=== PATIENT | female | born 1990 | race American Indian/Alaskan Native ===

== ENCOUNTER 2016-11-08 10:36 | Observation (INO) | payer MEDICAID ==
[2016-11-08 10:55] VITALS: RESP 20; TEMP 98.5; O2SAT 99
--- NOTE | 2016-11-08 11:23 | C.PDOC ---
History Of Present Illness 25 y/o female with PSHx of , EGA 17 weeks presents to ED with complaints of intermittent abdominal pain for 3 days. Patient reports pain was initially to LLQ then RUQ and RLQ. Patient states pain moves to right flank when she lies on her right side but moves forward when supine. Patient denies or placental abnormality and denies fever, nausea, vomiting, UTI symptoms , vaginal bleeding or associated symptoms with eating. No other complaints at this time ABD PAIN X 3 DAYS. INTERMIT. INITIALLY LLQ, THEN RUQ/RLQ. PS PAIN MOVES TO R FLANK WHEN LIES ON R SIDE BUT MOVES FORWARD WHEN SUPINE. NO FEVER, NV, UTI SX. NO ASSOC W EATING. PSH CSECT. EGA 17 WKS. DENIES VAG BLEED. PT DENIES OR PLACENTAL ABNORMALITY EXAM APPEARS COMFORT NONTOXIC HEENT NEG ABD +GRAVID MIN RLQ TEND SOFT NO R/G REMAINDER NEG Time Seen by Provider: 11/08/16 11:00 Chief Complaint (Nursing): Abdominal Pain History Per: Patient History/Exam Limitations: no limitations Onset/Duration Of Symptoms: Days Current Symptoms Are (Timing): Still Present Location Of Pain/Discomfort: RUQ, RLQ, LLQ Quality Of Discomfort: "Pain" Exacerbating Factors: Movement Past Medical History Reviewed: Historical Data, Nursing Documentation, Vital Signs Vital Signs: Last Vital Signs Temp 98.5 F 11/08/16 10:51 Pulse 100 H 11/08/16 10:51 Resp 20 11/08/16 10:51 BP 111/71 11/08/16 10:51 Pulse Ox 99 11/08/16 12:51 - Medical History PMH: No Chronic Diseases Surgical History: No Surg Hx Family History: States: No Known Family Hx - Social History Hx Tobacco Use: No Hx Alcohol Use: No Hx Substance Use: No - Immunization History Hx Tetanus Toxoid Vaccination: No Hx Influenza Vaccination: Yes Hx Pneumococcal Vaccination: No Review Of Systems Except As Marked, All Systems Reviewed And Found Negative. Constitutional: Negative for: Fever, Chills Gastrointestinal: Positive for: Abdominal Pain. Negative for: Nausea, Vomiting Genitourinary: Negative for: Dysuria, Hematuria, Vaginal Bleeding Musculoskeletal: Negative for: Back Pain Skin: Negative for: Rash Physical Exam - Physical Exam Appears: Non-toxic, Other (Comfortable) Skin: Normal Color, Warm, Dry, No Rash Head: Atraumatic, Normacephalic Eye(s): bilateral: Normal Inspection, EOMI Ear(s): Bilateral: Normal Nose: Normal Oral Mucosa: Moist Throat: Normal, No Erythema Neck: Normal ROM, Supple Chest: Symmetrical Gastrointestinal/Abdominal: Soft, Tenderness (Minimal RLQ), No Guarding, No Rebound, Other (+) Back: No CVA Tenderness Extremity: Normal ROM, Capillary Refill (<2 seconds) Neurological/Psych: Oriented x3 ED Course And Treatment - Laboratory Results Result Diagrams: 11/08/16 11:59 11/08/16 11:59 O2 Sat by Pulse Oximetry: 99 (RA) Pulse Ox Interpretation: Normal Progress - Data Reviewed Data Reviewed: Lab, Diagnostic imaging, Old records ED OBSERVATION Discharge: Yes Date of observation admission: 11/08/16 Time of observation admission: 11:15 - Observation admission statement Patient is being placed in observation because:: ABD PAIN; PREG - Goals of Observation Goals of observation are:: NEG ACUTE ABD - Progress Note Progress Note: 11/08/16 14:01 FEELS BETTER. NO S/S ACUTE ABD. VSS. Disposition Counseled Patient/Family Regarding: Studies Performed, Diagnosis, Need For Followup, Rx Given - Disposition Disposition: HOME/ ROUTINE Disposition Time: 14:01 Condition: IMPROVED - POA Present On Arrival: None - Clinical Impression Clinical Impression: UTI (urinary tract infection) during , Abdominal pain, Threatened - Scribe Statement The provider has reviewed the documentation as recorded by the Terrence Bryant All medical record entries made by the Terrence were at my direction and personally dictated by me. I have reviewed the chart and agree that the record accurately reflects my personal performance of the history, physical exam, medical decision making, and the department course for this patient. I have also personally directed, reviewed, and agree with the discharge instructions and disposition.
[2016-11-08 12:02] LABS: BASO # 0.1 K/uL (0.0-0.2); BASO % 0.7 % (0.0-2.0); EOS % 0.5 % (0.0-4.0); HEMATOCRIT 31.5 % (34.0-47.0); LYMPH # 2.1 K/uL (1.0-4.3); LYMPH % 22.9 % (20.0-40.0); MEAN CELL VOLUME 78.4 fL (81.0-99.0); MEAN CORPUSCULAR HEMOGLOBIN 26.9 pg (27.0-31.0); MEAN CORPUSCULAR HGB CONC 34.3 g/dL (33.0-37.0); MEAN PLATELET VOLUME 6.9 fL (7.2-11.7); MONO # 0.4 K/uL (0.0-0.8); MONO % 4.7 % (0.0-10.0); NRBC % 0.1 % (0.0-2.0); RED CELL DISTRIBUTION WIDTH 13.7 % (11.5-14.5); WHITE BLOOD COUNT 9.4 K/uL (4.8-10.8)
[2016-11-08 12:06] LABS: RBC URINE 10 /hpf (0-3); URINE BACTERIA RARE (<OCC); URINE BILIRUBIN NEGATIVE (NEGATIVE); URINE BLOOD 1+ (NEGATIVE); URINE COLOR Yellow (YELLOW); URINE GLUCOSE (UA) NORMAL (Normal); URINE KETONE NEGATIVE (NEGATIVE); URINE LEUKOCYTE ESTERASE 3+ Leu/uL (Negative); URINE PROTEIN NEGATIVE (NEGATIVE); URINE UROBILINOGEN NORMAL mg/dL (0.2-1.0); WBC URINE 141 /hpf (0-5)
[2016-11-08 12:23] LABS: CHLORIDE 102 mmol/L (98-107)
[2016-11-08 12:24] LABS: POTASSIUM 3.8 mmol/L (3.6-5.2); SODIUM 136 mmol/L (132-148)
[2016-11-08 12:26] LABS: ALB/GLOB RATIO 1.1 (1.0-2.1); AST/SGOT 13 U/L (14-36); BILIRUBIN,TOTAL 0.4 mg/dL (0.2-1.3); BLOOD UREA NITROGEN 7 mg/dL (7-17); CARBON DIOXIDE 21 mmol/L (22-30); GFR AFRICAN-AMERICAN > 60; TOTAL PROTEIN 6.4 g/dL (6.3-8.3)
[2016-11-08 12:27] LABS: ALKALINE PHOSPHATASE 59 U/L (38-126); ALT/SGPT 23 U/L (9-52); GLUCOSE,RANDOM 74 mg/dL (65-105)
--- NOTE | 2016-11-08 12:50 | US ---
HISTORY: RUQ/RLQ abd pain COMPARISON: None available. TECHNIQUE: Sonographic evaluation of the right upper quadrant of the abdomen. FINDINGS: LIVER: Measures 16.0 cm in length and appears unremarkable. No focal hepatic mass identified. The main portal vein appears patent with normal directional flow. No intrahepatic bile duct dilatation. GALLBLADDER: No gallstones. No gallbladder wall thickening or pericholecystic edema. Negative sonographic Soto's sign as assessed by the switchman. COMMON BILE DUCT: Measures 3 mm. PANCREAS: Not well-visualized. RIGHT KIDNEY: Measures 12.0 x 4.3 x 5.5 cm. No obstructing calculus or hydronephrosis identified. AORTA: Limited visualization appears grossly unremarkable. IVC: Limited visualization appears grossly unremarkable. OTHER FINDINGS: None . IMPRESSION: Unremarkable right upper quadrant ultrasound as above.
--- NOTE | 2016-11-08 13:28 | US ---
Indication: Right-sided abdominal pain, rule out demise Comparison: None available Technique: Real-time ultrasound was performed through the pelvis. Findings: There is a single living fetus in cephalic presentation. Anterior placenta. The placenta is not previa. There are no adnexal masses or cysts evident. Cervix length measures approximately 3.5 cm. The maternal appendix was not visualized on limited submitted sonographic views of the right lower quadrant. Measurements and calculations: Fetus has a composite sonographic age of 18 weeks 1 day. This calculation is based on the biparietal diameter, head circumference, abdominal circumference, and femur length. Estimated heart rate 148.2 beats per min. Impression: Single living fetus with a composite sonographic age of 18 weeks 1 day. Estimated heart rate 148.2 beats per min. The appendix is not visualized.
[2016-11-08 14:28] VITALS: BP 120/60; PULSE 92
== END 2016-11-08 14:02 | disposition home or self-care (01) ==
LOC: C.ER 10:36 → C.9OBSV 11:15
PROVIDERS: ADMIT Emergency Medicine; ATTEND Emergency Medicine
DX: O20.0 Threatened abortion (principal); Z3A.17 17 weeks gestation of pregnancy
CPT/HCPCS: 36415; 76705; 76815; 80053; 81001; 83690; 85025; 87086; G0378

== ENCOUNTER 2018-02-18 10:18 | Emergency (ER) | payer MEDICAID ==
[2018-02-18 10:39] VITALS: BP 121/79; PULSE 109; RESP 14; TEMP 100; O2SAT 98
--- NOTE | 2018-02-18 10:48 | C.PDOC ---
History Of Present Illness 27 y/o female comes in complaining of intermittent abdominal pain for the past 3 days, and new onset of chills and nausea today. States the pain is on the left mid abdomen, associated with pressure with urination. Patient has a PSHx of c- section. INTERMIT ABD PAIN X 3 DAYS, NEW ONSET CHILLS AND NAUSEA TODAY. L MID ABD, +ASSOC PRESSURE W URINATION. PSH CSECT EXAM NAD ABD NEG Time Seen by Provider: 02/18/18 10:43 Chief Complaint (Nursing): Abdominal Pain History Per: Patient History/Exam Limitations: no limitations Onset/Duration Of Symptoms: Days Current Symptoms Are (Timing): Still Present Past Medical History Reviewed: Historical Data, Nursing Documentation, Vital Signs Vital Signs: Last Vital Signs Temp 100 F H 02/18/18 10:36 Pulse 109 H 02/18/18 10:36 Resp 14 02/18/18 10:36 BP 121/79 02/18/18 10:36 Pulse Ox 98 02/18/18 10:36 - Medical History PMH: Denies: Chronic Kidney Disease Family History: States: No Known Family Hx - Social History Hx Tobacco Use: No Hx Alcohol Use: Yes Hx Substance Use: No - Immunization History Hx Tetanus Toxoid Vaccination: No Hx Influenza Vaccination: Yes Hx Pneumococcal Vaccination: No Review Of Systems Except As Marked, All Systems Reviewed And Found Negative. Constitutional: Positive for: Chills. Negative for: Fever Cardiovascular: Negative for: Chest Pain Respiratory: Negative for: Shortness of Breath Gastrointestinal: Positive for: Nausea, Abdominal Pain (left, mid) Skin: Negative for: Rash Physical Exam - Physical Exam Appears: Non-toxic, No Acute Distress Skin: Warm, Dry Head: Atraumatic, Normacephalic Eye(s): bilateral: Normal Inspection Oral Mucosa: Moist Neck: Supple Chest: Symmetrical Cardiovascular: Rhythm Regular, No Murmur Respiratory: Normal Breath Sounds, No Rales, No Rhonchi, No Wheezing Gastrointestinal/Abdominal: Soft, No Tenderness, No Distention, No Guarding, No Rebound Extremity: Bilateral: Atraumatic, Normal Color And Temperature, Normal ROM Neurological/Psych: Oriented x3, Normal Speech ED Course And Treatment O2 Sat by Pulse Oximetry: 98 (RA) Pulse Ox Interpretation: Normal Progress Note: POC urine test and urinalysis ordered. Disposition Counseled Patient/Family Regarding: Studies Performed, Diagnosis, Need For Followup, Rx Given - Disposition Referrals: [facility] [Outside] [facility] [Outside] Disposition: HOME/ ROUTINE Disposition Time: 11:31 Condition: IMPROVED Prescriptions: Nitrofurantoin Macrocrystals [Macrobid] 100 mg PO BID #10 cap Phenazopyridine HCl [Pyridium] 200 mg PO BID #6 tablet Instructions: Urinary Tract Infection, Adult (DC) Forms: [facility] ([place]), Work Excuse - Clinical Impression Clinical Impression: UTI (urinary tract infection) - Scribe Statement The provider has reviewed the documentation as recorded by the Terrence Carlisle Provider Attestation: All medical record entries made by the Terrence were at my direction and persona lly dictated by me. I have reviewed the chart and agree that the record accurately reflects my personal performance of the history, physical exam, medical decision making, and the department course for this patient. I have also personally directed, reviewed, and agree with the discharge instructions and disposition.
[2018-02-18 11:20] LABS: SQUAMOUS EPITHIAL 1 /hpf (0-5); URINE BACTERIA FEW (<OCC); URINE BILIRUBIN NEGATIVE (NEGATIVE); URINE BLOOD 2+ (NEGATIVE); URINE CLARITY Hazy (Clear); URINE COLOR Yellow (YELLOW); URINE GLUCOSE (UA) NORMAL (Normal); URINE LEUKOCYTE ESTERASE 3+ Leu/uL (Negative); URINE PROTEIN 1+ mg/dL (NEGATIVE); URINE UROBILINOGEN NORMAL mg/dL (0.2-1.0)
== END 2018-02-18 11:42 | disposition home or self-care (01) ==
LOC: C.ER 10:18
DX: N39.0 Urinary tract infection, site not specified (principal)